=== PATIENT | male | born 1985 | race Caucasian/White ===

== ENCOUNTER 2020-07-02 12:10 | Emergency (ER) | payer BC ==
[2020-07-02 12:23] VITALS: TEMP 98.1; BMI 27.9
[2020-07-02] MEDS ORDERED: ASPIRIN 81 MG CHEWABLE TABLETS PO ONE (12:40)
--- NOTE | 2020-07-02 12:40 | PDOC ---
History of Present Illness - General Chief Complaint: Chest Pain Stated Complaint: CHEST PAIN Time Seen by Provider: 07/02/20 12:18 History Source: Patient Exam Limitations: No Limitations - History of Present Illness Initial Comments: 07/02/20 12:36 Of your eyes and is she is 7 she is here when she is active she has had a history 34-year-old male no past medical history does have a history of tobacco use quit 2 years ago here today complaining of chest pain. 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 No radiation states only lasted a few minutes states he had to stop doing what he was doing because the pain was so severe did get a bit short of breath of the time no radiation of the pain. On his way to the ED patient feels like he became a little diaphoretic denies any nausea or vomiting did have travel to [place] 8 weeks ago where he traveled for his dad's does have a history family history of heart disease in his father who had multiple stents and MIs beginning in his 40s patient states that he used to vape but quit 2 weeks ago Past History - Medical History Allergies/Adverse Reactions: Allergies Allergy/AdvReac Type Severity Reaction Status Date / Time No Known Allergies Allergy Verified 07/02/20 12:12 Home Medications: Ambulatory Orders Multivitamin [Multivitamins] 1 each PO DAILY 07/02/20 COPD: No Thyroid Disease: No - Psycho-Social/Smoking History Smoking History: Former smoker Have you smoked in the past 12 months: No If you are a former smoker, when did you quit?: 2018 Information on smoking cessation initiated: No - Substance Abuse Hx (Audit-C & DAST Scrn) How often the patient has a drink containing alcohol: 2-4 times / month Score: In Men: 4 or > Positive; In Women: 3 or > Positive: 2 Screen Result (Pos requires Nsg. Audit-10AR): Negative In the last yr the pt used illegal drug/Rx for NonMed reason: No Score: Yes response is considered Positive: 0 Screen Result (Positive result requires Nsg. DAST-10): Negative Review of Systems - Review of Systems Constitutional: No: Chills, Fever Respiratory: Yes: Shortness of Breath. No: Cough, Orthopnea Cardiac (ROS): Yes: Chest Pain ABD/GI: No: Nausea, Vomiting : No: Burning, Dysuria, Discharge Musculoskeletal: No: Back Pain, Gout, Joint Pain Integumentary: No: Bruising, Change in Color Neurological: No: Headache, Paresthesia All Other Systems: Reviewed and Negative *Physical Exam - Vital Signs Last Vital Signs Temp Pulse Resp BP Pulse Ox 98.1 F 71 18 113/62 98 07/02/20 12:10 07/02/20 16:39 07/02/20 16:39 07/02/20 16:39 07/02/20 16:39 - Physical Exam 07/02/20 12:38 Awake alert no acute distress lungs are clear bilaterally heart is regular murmurs or gallops abdomen is soft and nontender extremities are warm well perfused there is no noted peripheral edema or calf tenderness. Neurologic patient is awake alert and oriented x3 skin is warm and dry no rash Heart Score/ECG Review - History History: Moderately suspicious - Electrocardiogram EKG: Normal - Age Age: </= 45 - Risk Factors Risk Factors Heart Score: Yes Smoking History, Yes Positive family hx of cardiac disease Based on the list above the patient has:: 1-2 risk factors - Troponin Troponin: </= normal limit - Score Heart Score - Total: 2 #1 General ECG Interpretation: Sinus Rhythm, Normal Rate (73), Normal Intervals, No acute ischemic changes ED Treatment Course - LABORATORY CBC & Chemistry Diagram: 07/02/20 12:53 07/02/20 12:40 - ADDITIONAL ORDERS Additional order review: Laboratory Results 07/02/20 07/02/20 07/02/20 16:11 12:53 12:40 PT with INR 11.3 INR 1.01 D-Dimer 423 Sodium Potassium Chloride Carbon Dioxide Anion Gap BUN Creatinine Est GFR (CKD-EPI)AfAm Est GFR (CKD-EPI)NonAf Random Glucose Calcium Total Bilirubin AST ALT Alkaline Phosphatase Troponin I < 0.03 Total Protein Albumin 07/02/20 07/02/20 12:40 12:40 PT with INR INR D-Dimer Sodium 135 L Potassium 4.0 Chloride 103 Carbon Dioxide 26 Anion Gap 6 L BUN 20.0 H Creatinine 1.0 Est GFR (CKD-EPI)AfAm 111.73 Est GFR (CKD-EPI)NonAf 96.40 Random Glucose 97 Calcium 9.3 Total Bilirubin 0.6 AST 26 ALT 39 Alkaline Phosphatase 76 Troponin I < 0.03 Total Protein 8.2 Albumin 4.7 07/02/20 12:53 RBC 4.63 MCV 93.9 MCHC 34.0 RDW 12.4 MPV 8.6 Neutrophils % 60.5 Lymphocytes % 25.1 Monocytes % 8.3 Eosinophils % 4.9 H Basophils % 1.2 - RADIOLOGY Radiology Studies Ordered: Category Date Time Status CHEST PA & LAT [RAD] Stat Radiology 07/02/20 12:18 Completed - Medications Given in the ED: ED Medications Discontinued Medications Generic Name Dose Route Start Last Admin Trade Name Freq PRN Reason Stop Dose Admin Aspirin 162 mg 07/02/20 12:40 07/02/20 12:45 Asa - PO 07/02/20 12:41 162 mg ONCE ONE Administration Medical Decision Making - Medical Decision Making 07/02/20 12:39 34-year-old male history of tobacco use quit 2 years ago recent vaping here today complaining of sharp chest pain. Differential includes infection however no infectious-like symptoms. Angina PE is considered due to the patient's recent travel however no other risk factors plan CBC CMP coags d-dimer chest x- ray patient will require short-term observation and a repeat troponin and likely outpatient follow-up with cardiology pending results of the studies will be given aspirin prophylactically for his symptoms chest x-ray EKG was obtained is normal sinus rhythm [address] elevations or depressions 07/02/20 14:19 pt labs normal. trop negative. cxr normal. ekg normal. d dimer negative will do short observation for repeat trop, if negative dc cardiology fu. 07/02/20 16:48 Patient's repeat 4-hour troponin is negative will discharge home told to follow- up with cardiology given referral for Dr. Petty told to make appointment to be seen within the next 2 to 3 days return for any recurrent symptoms shortness of breath or any other concerns Discharge - Discharge Information Problems reviewed: Yes Clinical Impression/Diagnosis: Chest pain Condition: Improved Disposition: HOME - Admission No - Follow up/Referral Referrals: Ema Peters [Primary Care Provider] - - Patient Discharge Instructions Patient Printed Discharge Instructions: DI for Chest Pain Additional Instructions: your labs are negative including basic blood counts, electrolytes and troponin testing for a heart attack. you should follow up with a linseed cake trimmer within 2 - 3 days. see referral information for Dr. Avalos linseed cake trimmer, and discuss outpatient stress test due to your family history. you should follow up with your doctor tomorrow at 12:45 Dr Kinney office. return for worsening pain, shortness of breath or any concerns. - Post Discharge Activity
[2020-07-02] MEDS ORDERED: ASPIRIN 81 MG CHEWABLE TABLETS ONE (12:42)
[2020-07-02 13:01] LABS: BASO % 1.2 % (0-2.0); EOS % 4.9 % (0-4.5); HEMATOCRIT 43.4 % (35.4-49); HEMOGLOBIN 14.8 GM/dl (11.7-16.9); LYMPH % 25.1 % (8-40); MCH 31.9 pg (25.7-33.7); MEAN CELL VOLUME 93.9 fl (80-96); MEAN PLT VOLUME 8.6 fl (7.5-11.1); MONO % 8.3 % (3.8-10.2); NEUT % 60.5 % (42.8-82.8); PLATELET COUNT 322 K/MM3 (134-434); RBC 4.63 M/mm3 (4.00-5.60); RDW 12.4 % (11.9-15.9)
[2020-07-02 13:12] LABS: INR 1.01 (0.82-1.09); PROTHROMBIN TIME (PATIENT) 11.3 SEC (10.2-13.0)
[2020-07-02 13:15] LABS: ALBUMIN 4.7 g/dl (3.4-5.0); BILIRUBIN,TOTAL 0.6 mg/dl (0.2-1); CALCIUM 9.3 mg/dl (8.5-10); TOT PROT 8.2 g/dl (6.4-8.2)
[2020-07-02 16:40] VITALS: BP 113/62; PULSE 71
--- NOTE | 2020-07-03 08:59 | EKG ---
Test Reason : Blood Pressure : / mmHG Vent. Rate : 073 BPM Atrial Rate : 073 BPM P-R Int : 120 ms QRS Dur : 092 ms QT Int : 374 ms P-R-T Axes : 033 064 044 degrees QTc Int : 412 ms NORMAL SINUS RHYTHM NORMAL ECG NO PREVIOUS ECGS AVAILABLE Confirmed by RADHA NUÑEZ MD ([id number]) on 07/03/2020 8:59:01 AM Referred By: CRYSTAL GASTELUM Confirmed By:RADHA NUÑEZ MD
== END 2020-07-02 17:15 | disposition home or self-care (01) ==
LOC: FER 12:10
DX: R07.9 Chest pain, unspecified (principal)
CPT/HCPCS: 36415; 71046-TC-FY; 80053; 84484; 85025; 85379; 85610; 93005; 99285-25

== ENCOUNTER 2020-11-12 10:47 | Emergency (ER) | payer BC | END 2020-11-12 12:01 | disposition home or self-care (01) | LOC: JVIRT 10:47 | DX: Z20.822 Contact with and (suspected) exposure to COVID-19 (principal) | CPT/HCPCS: G2012-GT ==

== ENCOUNTER 2020-11-13 12:03 | Emergency (ER) | payer BC | END 2020-11-13 13:02 | disposition home or self-care (01) | LOC: JVIRT 12:03 | DX: Z11.52 Encounter for screening for COVID-19 (principal) | CPT/HCPCS: C9803; G2012-GT; U0003 ==